=== PATIENT | male | born 1965 | race Caucasian/White ===

== ENCOUNTER 2018-02-18 10:56 | Outpatient (CLI) | payer BC, SELFPAY ==
[2018-02-18 12:08] LABS: Cholesterol 160 mg/dL (50-200); HDL Cholesterol 44 mg/dL (40-60); LDL CHOLESTEROL 87 mg/dL (<100); Triglyceride 267 mg/dL (30-150)
== END 2018-02-18 11:16 ==
PROVIDERS: PCP Nurse Practitioner; Visit Provider Nurse Practitioner
DX: E78.5 Hyperlipidemia, unspecified (principal)
CPT/HCPCS: 36415; 80061; 83721

== ENCOUNTER 2018-07-14 06:27 | Emergency (ER) | payer BC, SELFPAY ==
[2018-07-14 06:31] VITALS: BP 144/101; PULSE 76; RESP 24; TEMP 36.9; O2SAT 97
--- NOTE | 2018-07-14 07:21 | DI.RAD_ITS ---
SYMPTOM/DIAGNOSIS: SOB FRONTAL AND LATERAL CHEST: Comparison is made with 03/26/17. Cardiac silhouette is within normal limits and stable. Pulmonary vasculature is within normal limits. There is an infiltrate seen in the right lower lobe. The left lung appears clear. No gross effusions or pneumothoraces are identified. There are mild degenerative changes seen in the spine. IMPRESSION: Right basilar infiltrate suspicious for pneumonia. Progress films are recommended in this patient to document complete resolution of the right basilar infiltrate.
--- NOTE | 2018-07-14 07:23 | W.ED.GENAD ---
Discharge Plan Disposition Patient Disposition: HOME Discharge Details Chief Complaint: RespSymp Clinical Impression: Consolidation of right lower lobe of lung, Ground glass opacity present on imaging of lung, Liver lesion, right lobe, Thickening of mucosa Primary Care Provider: Liliam Marrero ED Provider: Azael Duff Home Meds and New Rx's Prescriptions: New levofloxacin [Levaquin] 750 mg tablet 750 mg PO DAILY Qty: 4 RF: 0 Continued atorvastatin [Lipitor] 40 MG tablet 40 mg PO DAILY Qty: 90 RF: 3 amlodipine 5 MG tablet 5 mg PO DAILY Qty: 90 RF: 3 benzonatate [Tessalon Perles] 100 mg capsule 100 mg PO TID PRNRF: 0 Discharge Instructions Instructions: Pneumonia (ED) Additional Instructions: Please take antibiotic as prescribed. Please contact your primary care physician to arrange follow-up. Call on Monday. Please follow-up with pulmonology. Return to the ER for any worsening or new concerning symptoms. Stand Alone Forms: Work Release Referrals: Beatriz Barrera MD [ [facility] STAFF PHYSICIAN] - Liliam Marrero NP [Primary Care Provider] - Discharge Data Discharge Date/Time-TO BE ENTERED AT DEPARTURE: 07/14/18 12:05 Medical Decision Making <Chase Silva MD - Last Filed: 07/16/18 15:57> Patient does appear somewhat tachypneic but not in distress. He does have saturations that vary from 85-95%. He has diminished breath sounds on the right with some rhonchi unclear whether that is related to his paralyzed right hemidiaphragm or not. He is not febrile. He does not appear to be in distress. He is not complaining of chest pain. We will go ahead and place an IV and get laboratory studies including a d-dimer. Will obtain chest x-ray and EKG. Patient's EKG is sinus rhythm at 72. He has an incomplete right bundle branch block. Otherwise unremarkable EKG. laboratory studies show normal CBC. D-dimer is negative. Troponin is negative. Chemistries unremarkable. Magnesium a little low at 1.7. BMP normal. Chest x-ray with questionable right lower lobe process. Case discussed with Dr. Duff for signout. Will obtain CT scan of neck, chest, abdomen pelvis. Disposition pending results of the scans. Lab Data Lab results reviewed: Yes I reviewed the patient's lab results. ECG Data Attestation: I personally reviewed and interpreted this ECG (s) as follows: Interpretation: Sinus rhythm at 76 with an incomplete right bundle branch. <Azael Duff MD - Last Filed: 07/15/18 21:33> 8:45 -- Care signed out by Dr. Silva with plan to obtain CT imaging of neck, chest and abdomen pelvis. 10:28: CT of the neck interpreted by radiology: Pharyngeal mucosal thickening with decreased caliber of pharyngeal airway of indeterminate etiology. Bilateral apical pulmonary opacities. Differential diagnosis includes infection, hypersensitivity pneumonitis, pulmonary edema and other nonspecific interstitial pneumonitis. CT of the chest interpreted by radiology: No pulmonary artery embolism, right lower lobe consolidation consistent with pneumonia in the proper clinical setting. Bilateral groundglass lung opacities, nonspecific. Differential diagnosis includes infection, hypersensitivity pneumonitis and other interstitial lung disease, nonspecific. CT abdomen and pelvis interpreted by radiology: No acute abnormality. Mild diverticulosis of the descending and sigmoid colon noted. 11:45 -- Requested additional interpretation from radiology reviewed: The appendix is normal. All results were discussed with the patient. Patient was reassessed and remained stable. Saturating well on room air. No respiratory distress. Plan to start Levaquin 750 mg x 5 days given history of diaphragmatic paralysis and recent administration of magnesium. Disposition decision was made weighing the risks and benefits of hospitalization versus outpatient treatment, the risk for further decompensation, and the patient's wishes. The patient was stable and requested discharge. Prior to discharge, my usual and customary return precautions were reviewed with the patient - this included follow-up instructions and reason to return to the emergency department if condition worsens, does not improve as expected, or other new concerns arise. HPI <Chase Silva MD - Last Filed: 07/16/18 15:57> General Mode of arrival: ambulatory. Date/Time Provider Initiated Documentation: 07/14/18 07:21. Limitations to Documentation: no limitations. Information obtained by: patient and family. HPI Narrative: Patient presents to ED with complaints of increased throat constriction and shortness of breath. Patient apparently has a history of paralyzed right hemidiaphragm as well as chronic, intermittent throat constriction. He has been seen in [place] and at [facility]. He was actually at [facility] yesterday for discussion with surgeon regarding the right hemidiaphragm paralysis. He has not had any new symptoms until this morning. He went to bed using his CPAP machine. He awoke with increased shortness of breath, some sort of discomfort in the right chest that he cannot really describe. Increased feeling of throat constriction. He also complains of numbness in the scalp region but not a headache. He has had no fever that he is aware of. He is not coughing more than he usually does in relation to the throat constriction which makes him feel like he needs to clear his throat. He did have some right lower quadrant abdominal pain and the need to have a bowel movement this morning. He subsequently had a large diarrheal stool. Abdominal pain seemed to get better but is still kind of there. Presents now for evaluation. Related Data Home Medications Medication Instructions Recorded Confirmed amlodipine 5 mg PO DAILY #90 tab-cap 07/11/17 02/20/18 atorvastatin [Lipitor] 40 mg PO DAILY #90 tab-cap 07/11/17 02/20/18 benzonatate 100 mg capsule 100 mg PO TID PRN 06/07/18 levofloxacin [Levaquin] 750 mg PO DAILY #4 tab 07/14/18 Previous Rx's Medication Instructions Recorded amlodipine 5 mg PO DAILY #90 tab-cap 07/11/17 atorvastatin [Lipitor] 40 mg PO DAILY #90 tab-cap 07/11/17 levofloxacin [Levaquin] 750 mg PO DAILY #4 tab 07/14/18 Allergies Allergy/AdvReac Type Severity Reaction Status Date / Time No Known Drug Allergies Allergy Unverified 07/14/18 06:38 General Stated Complaint: RespSymp GOLDIE: 3 Review of Systems <Chase Silva MD - Last Filed: 07/16/18 15:57> Constitutional Denies chills, Denies fever(s), Denies headache(s), Denies lethargy, Denies malaise and Denies weakness Eyes Denies eye discharge and Denies eye pain ENT Denies vertigo, Denies facial pain, Denies headache(s), Denies nasal congestion, Denies neck pain, Denies sore throat and Reports other (throat constriction) Cardiovascular Denies chest pain, Denies syncope, Denies edema, Reports lightheadedness and Reports dyspnea Respiratory Denies chest congestion, Reports cough and Reports dyspnea Gastrointestinal Reports abdominal pain, Reports diarrhea, Denies nausea and Denies vomiting Genitourinary Denies hematuria, Denies dysuria and Denies flank pain Musculoskeletal Denies back pain, Denies neck pain and Reports numbness (scalp) Integumentary/Breasts Denies rash Neurologic Denies confusion, Denies vertigo, Denies syncope, Denies headache(s), Reports numbness (scalp) and Denies weakness Psychiatric Denies confusion PFS <Chase Silva MD - Last Filed: 07/16/18 15:57> Medical History Paralysis of diaphragm (Chronic) Paralysis agitans (Resolved) Rotator cuff syndrome of left shoulder (Chronic) Restrictive lung disease (Chronic 10/11/17) Obstructive sleep apnea (Chronic) Neuralgia and neuritis (Resolved) Traumatic tear of supraspinatus tendon of left shoulder (Resolved 12/16/14) Lateral epicondylitis of left elbow (Resolved 04/14/16) Impingement syndrome, shoulder, left (Resolved) Hyperlipidemia (Chronic 12/16/14) Essential hypertension (Chronic 04/27/15) Esophageal reflux (Chronic) Bony spur (Chronic 08/27/14) Bicipital tenosynovitis Esophageal reflux (05/29/09) Family hx colonic polyps Frostbite of face Hiatal hernia (05/29/12) History of esophageal stricture Hypertriglyceridemia Lipoma of skin Paresthesia Temporomandibular joint (TMJ) pain Surgical History Rotator Cuff Repair (01/19/15) upper GI endoscopy (05/11/05) Family History Sister Personal history of malignant neoplasm Thyroid disease Grandfather Heart disease Grandmother Diabetes Thyroid disease Mother Essential hypertension Colon polyps Hyperlipidemia Glaucoma Father Essential hypertension Colon polyps Maternal Aunt Multiple sclerosis Brother Personal history of malignant neoplasm Other Family history of colonic polyps Family history of malignant neoplasm of gastrointestinal tract Social History Smoking and Tabacco status: Never Exam <Chase Silva MD - Last Filed: 07/16/18 15:57> Const General: cooperative and comfortable Orientation: alert and oriented x3 HENMT Head: normocephalic and atraumatic Mouth: oropharynx normal and moist mucous membranes Throat: posterior oropharynx normal and no uvular edema Neck Neck: trachea midline, supple and no anterior neck swelling Resp Effort & Inspection: tachypneic Auscultation: diminished lung sounds on the right in the lower lung rizzo and rhonchi right lower Cardio Rate: regular rate Rhythm: regular rhythm Heart Sounds: S1 normal and S2 normal GI Inspection: non-distended Palpation: soft, no guarding and nontender Skin General skin exam: no rashes or lesions noted Neuro General: alert, oriented x3, no focal motor deficits and CN's II-XI intact bilaterally Cognition: normal cognition Speech: speech normal Extrem General: no clubbing, cyanosis or edema and no calf tenderness Course <Chase Silva MD - Last Filed: 07/16/18 15:57> Vital Signs Temperature 98.4 F 07/14/18 06:31 Pulse 76 07/14/18 06:31 Respiratory Rate 24 07/14/18 06:31 Blood Pressure 144/101 H 07/14/18 06:31 Pulse Oximetry 97 07/14/18 06:31 Temperature 98.4 F 07/14/18 06:31 Temperature Source Temporal Artery Scan 07/14/18 06:31 Pulse 76 07/14/18 06:31 Respiratory Rate 24 07/14/18 06:31 Respiratory Effort 07/14/18 06:39 Respiratory Depth Shallow 07/14/18 06:39 Blood Pressure 144/101 H 07/14/18 06:31 Pulse Oximetry 97 07/14/18 06:31 Oxygen Delivery Method Room Air 07/14/18 06:31 Oxygen Flow Rate 0 07/14/18 06:31 Pain Level 0 07/14/18 06:31 Sign Out <Chase Silva MD - Last Filed: 07/16/18 15:57> Sign Out Data: Sign Out Comment: pending imaging studies Last updated by Chase Silva MD at 07/14/18 08:51 Post-Handoff Eval:
[2018-07-14 07:36] LABS: Abs Immature Grans 0.03 k/cumm (0.0-0.09); Absolute Basophil Count 0.02 k/cumm (0.0-0.2); Absolute Eosinophil Count 0.13 k/cumm (0.0-0.7); Absolute Lymphocyte Count 1.88 k/cumm (1.2-3.4); Absolute Monocyte Count 0.59 k/cumm (0.11-0.7); Absolute Neutrophil Count 4.24 k/cumm (1.2-6.7); Basophils % 0.3; Eosinophils % 1.9; HCT 45.6 % (40.0-50.0); HGB 15.5 g/dL (13.5-17.5); Immature Grans % 0.4; Lymphocytes % 27.3; Mean Corpuscular Hemoglobin 30.5 pg (27.0-33.0); Mean Corpuscular Volume 89.6 fL (80-95); Monocytes % 8.6; Neutrophils % 61.5; Platelet Count 219 x1000/uL (130-400); RBC 5.09 m/cumm (4.50-6.00); RBC Distribution Width 11.9 % (11.8-14.1); White Blood Cell Count 6.89 k/cumm (4.4-10.8)
[2018-07-14 07:55] LABS: ALT 47 U/L (12-78); AST 21 U/L (15-37); Albumin 3.8 g/dL (3.4-5.0); Alkaline Phosphatase 100 U/L (46-116); Anion Gap 10.8 mmol/L (3-11); BUN 15 mg/dL (7-18); Bilirubin, Total 0.6 mg/dL (0.2-1.0); CO2 27.2 mmol/L (21.0-32.0); CREATININE 1.24 mg/dL (0.70-1.30); Calcium 9.1 mg/dL (8.5-10.1); Chloride 104 mmol/L (98-107); Glucose 109 mg/dL (70-100); Magnesium 1.7 mg/dL (1.8-2.4); NT-proBNP 11 pg/mL; Potassium 3.8 mmol/L (3.5-5.1); Sodium 142 mmol/L (136-145); Total Protein 7.8 g/dL (6.4-8.2)
[2018-07-14 07:56] LABS: Troponin I < 0.02 ng/mL (0.00-0.06)
[2018-07-14 08:05] LABS: D-Dimer 239 ng/mlFEU (<500)
--- NOTE | 2018-07-14 08:27 | DI.VRAD_ITS ---
EXAM: XR Chest, 2 Views EXAM DATE/TIME: 07/14/2018 7:23 AM CLINICAL HISTORY: 52 years old, male; Signs and symptoms; Other: SOB TECHNIQUE: XR of the chest, 2 views. COMPARISON: CR CHEST 2 VIEWS PA,LAT 03/26/2017 11:26 AM FINDINGS: Lungs: Right basilar opacification with obscuration of the right diaphragm and air bronchograms consistent with right pleural lobe consolidation. The findings are consistent with pneumonia in the proper clinical setting. Follow-up imaging until resolution of this abnormality is recommended as clinically warranted. The left lung is clear. Pleural space: Unremarkable. No pleural effusion. No pneumothorax. Heart/Mediastinum: The cardiomediastinal silhouette and pulmonary vasculature are within normal limits. Bones/joints: Unremarkable. IMPRESSION: Right lower lobe consolidation consistent with pneumonia in the proper clinical setting. Follow-up imaging until resolution of this abnormality is recommended as clinically warranted. Dictated and Authenticated by: Enrique Henry MD. Ordering:TRACI Stone MD
[2018-07-14] MEDS: Magnesium Oxide 400 MG TAB 800 MG PO (09:09)
[2018-07-14 09:17] LABS: TSH (W/Ref FT4) 1.85 uIU/mL (0.358-3.74)
[2018-07-14] MEDS: Omnipaque 350 MG/ML 100 ML BTL IJ (09:37)
--- NOTE | 2018-07-14 09:45 | DI.CT_ITS ---
SYMPTOM/DIAGNOSIS: INTERMITTENT HYPOXIA, SOB, ? PNEUMONIA, RLQ PAIN ABDOMEN AND PELVIC CT: There are no priors for comparison. The liver is normal in size. There are two tiny hypodensities in the liver. They are too small for further characterization but likely reflect small cysts. No suspicious hepatic masses are seen. The portal, superior mesenteric and splenic veins are patent. The gallbladder is negative. There is no biliary ductal dilatation. The pancreas and spleen are unremarkable. Incidental note is made of an accessory spleen in the hilum. The adrenal glands are unremarkable. The kidneys show normal and symmetric enhancement. No suspicious solid renal masses are present. No hydronephrosis is identified. The urinary bladder is intact. The reproductive organs are unremarkable. The bowel shows no evidence of obstruction or inflammation. There do appear to be a few diverticula in the sigmoid colon and descending colon but no acute diverticulitis is present. There is a normal appendix visualized. The abdominal aorta is of normal caliber with mild atherosclerosis. No significant abdominal or pelvic adenopathy, ascites or pneumoperitoneum is seen. No acute osseous abnormality is identified. IMPRESSION: No evidence of an acute abdomen. CHEST CTA: CT angiography was performed with multi slice acquisition and multi planar and 3D reconstruction. CT scan of the chest was performed according to the pulmonary embolus protocol. There is no evidence of a pulmonary embolus. The thoracic aorta is of normal caliber. No aneurysmal dilatation or dissection is seen. Heart size is within normal limits. No significant pericardial effusion is seen. No evidence of right ventricular dysfunction is present. No significant thoracic adenopathy is seen. There are infiltrates seen in the lower lobes bilaterally and the right upper lobe. No significant pleural effusion or pneumothorax is identified. No acute osseous abnormality is seen in the thoracic spine. IMPRESSION: 1. No evidence of a pulmonary embolus, thoracic aortic dissection or aneurysm. 2. Bilateral pulmonary infiltrates. These may represent atelectasis, pneumonia or edema.
--- NOTE | 2018-07-14 10:00 | DI.CT_ITS ---
SYMPTOM/DIAGNOSIS: CHRONIC DIFFICULTY SWALLOWING, PARALYZED DIAPHRAGM NECK CT: CT scan of the neck was performed following the uneventful administration of intravenous contrast material. The visualized intracranial structures are unremarkable. The orbits and retro-orbital soft tissues have a normal appearance. The visualized paranasal sinuses are clear. The mastoid air cells are well pneumatized. There is mild diffuse thickening of the pharyngeal soft tissues. No focal fluid collection is seen to suggest an abscess. No definite tonsillar enlargement is appreciated. The remainder of the oropharynx,nasopharynx, hypopharynx and larynx are unremarkable. The parotid and submandibular glands have a normal appearance. No significant cervical adenopathy is appreciated. There is a solitary hypodense lesion in the left thyroid gland. This may be further evaluated with thyroid ultrasound. Small nonspecific patchy opacities are seen in the lung apices. The cervical spine shows no acute abnormality. IMPRESSION: Mild pharyngeal mucosal thickening with decreased caliber of the pharyngeal airway. This is indeterminate. No focal fluid collection is seen to suggest an abscess. Bilateral apical pulmonary opacities. These are nonspecific. Differential considerations include infection, edema, interstitial pneumonitis or hypersensitivity pneumonitis among other etiologies.
--- NOTE | 2018-07-14 10:04 | DI.VRAD_ITS ---
EXAM: CT Neck With Contrast EXAM DATE/TIME: 07/14/2018 9:36 AM CLINICAL HISTORY: 52 years old, male; Signs and symptoms; Dysphagia / difficulty swallowing; Patient HX: Chronic difficulty swallowing, paralyzed diaphragm TECHNIQUE: Axial computed tomography images of the neck with intravenous contrast. All CT scans at this facility use at least one of these dose optimization techniques: automated exposure control; mA and/or kV adjustment per patient size (includes targeted exams where dose is matched to clinical indication); or iterative reconstruction. Coronal and sagittal reformatted images were created and reviewed. CONTRAST: 40 ml of omnipaque 350 administered intravenously. COMPARISON: No relevant prior studies available. FINDINGS: Oropharynx: Mild pharyngeal mucosal thickening. Decreased caliber of the pharynx. No significant tonsillar enlargement. Larynx: Normal. Normal epiglottis. Submandibular/Parotid glands: Normal. Glands are normal in size. Thyroid: Normal. No enlarged or calcified nodules. Lymph nodes: Normal. No lymphadenopathy. Trachea: The subglottic airway and trachea is unremarkable. Lungs: Multifocal groundglass opacities within the right lung apex. Small patchy consolidation within the medial left lung apex. Vasculature: No acute findings. Bones/joints: Normal. No acute fracture. Soft tissues: No neck mass or abscess identified. IMPRESSION: 1. Pharyngeal mucosal thickening with decreased caliber of the pharyngeal airway of indeterminate etiology. 2. Bilateral apical pulmonary opacities. Differential diagnosis includes infection, hypersensitivity pneumonitis, pulmonary edema and other nonspecific interstitial pneumonitis. Dictated and Authenticated by: Enrique Henry MD. Ordering:SHILO Addison MD
--- NOTE | 2018-07-14 10:14 | DI.VRAD_ITS ---
Addendum created by Enrique Henry MD on 07/14/2018 10:59:41 AM EST ADDENDUM: The appendix is normal. The report and impression are otherwise unchanged. Initial report created on 07/14/2018 10:13:38 AM EST EXAM: CT Angiography Chest With Contrast EXAM DATE/TIME: 07/14/2018 8:37 AM CLINICAL HISTORY: 52 years old, male; Signs and symptoms; Shortness of breath; Patient HX: Intermittent hypoxia, SOB, ? pna on cxr, rlq pain. TECHNIQUE: Axial computed tomographic angiography images of the chest with intravenous contrast using CT angiography protocol. All CT scans at this facility use at least one of these dose optimization techniques: automated exposure control; mA and/or kV adjustment per patient size (includes targeted exams where dose is matched to clinical indication); or iterative reconstruction. Coronal and sagittal reformatted images were created and reviewed. 3D reconstructed images were created and reviewed. CONTRAST: 83 ml of Omnipaque 350 administered intravenously. COMPARISON: CR XR CHEST 2V PA LATERAL 07/14/2018 8:01 AM FINDINGS: Pulmonary arteries: Normal. No pulmonary emboli. Aorta: Normal. No aortic aneurysm. No aortic dissection. Lungs: Right lower lobe consolidation consistent with pneumonia in the proper clinical setting. Left lower lobe and right upper lobe groundglass opacities. Pleural space: Normal. No pneumothorax. No pleural effusion. Heart: Normal. No cardiomegaly. No pericardial effusion. Upper abdomen: Chronic elevation of the right diaphragm. Lymph nodes: Unremarkable. No enlarged lymph nodes. Bones/joints: Unremarkable. No acute fracture. Soft tissues: Unremarkable. IMPRESSION: 1. No pulmonary arterial embolism. 2. Right lower lobe consolidation consistent with pneumonia in the proper clinical setting. 3. Bilateral groundglass lung opacities, nonspecific. Differential diagnosis includes infection, hypersensitivity pneumonitis and other interstitial lung disease, nonspecific. EXAM: CT Angiography Abdomen With Contrast EXAM DATE/TIME: 07/14/2018 8:37 AM CLINICAL HISTORY: 52 years old, male; Signs and symptoms; Shortness of breath; Patient HX: Intermittent hypoxia, SOB, ? pna on cxr, rlq pain. TECHNIQUE: Axial computed tomographic angiography images of the abdomen with intravenous contrast material, including non-contrast images if performed. MIP and/or 3D reconstructed images were created and reviewed. All CT scans at this facility use at least one of these dose optimization techniques: automated exposure control; mA and/or kV adjustment per patient size (includes targeted exams where dose is matched to clinical indication); or iterative reconstruction. Coronal and sagittal reformatted images were created and reviewed. COMPARISON: CR XR CHEST 2V PA LATERAL 07/14/2018 8:01 AM FINDINGS: Lungs: Unremarkable. No consolidation. VASCULATURE: Aorta: No aortic aneurysm. No aortic dissection. Celiac trunk and mesenteric arteries: No occlusion or significant stenosis. Renal arteries: No occlusion or significant stenosis. ABDOMEN: Liver: Tiny indeterminate low-density lesion within the right hepatic lobe on image 32 of series 12 is nonspecific but likely tiny cyst. No hepatic duct dilatation. Gallbladder and bile ducts: Unremarkable. No cholecystitis or bile. Pancreas: Normal. No ductal dilation. Spleen: Normal. No splenomegaly. Adrenals: Normal. No mass. Kidneys and ureters: Normal. No hydronephrosis. Stomach and bowel: Mild diverticulosis of the descending and sigmoid colon. No diverticulitis. Intraperitoneal space: Unremarkable. No free air. No significant fluid collection. Bones/joints: Unremarkable. No acute fracture. No dislocation. Soft tissues: Unremarkable. Lymph nodes: Unremarkable. No enlarged lymph nodes. IMPRESSION: No acute abnormality. Dictated and Authenticated by: Enrique Henry MD. Ordering:SHILO Addison MD
[2018-07-14] MEDS: LEVOFLOXACIN 500 MG, LEVOFLOXACIN 250 MG 750 MG PO (11:32)
--- NOTE | 2018-07-16 09:22 | PDOC.ERCMPRO ---
Care Management Progress Note 07/16-Dr. Ana Duff requested a referral to Pulmonology ([facility]) as soon as they can get him. This CM faxed referral to [facility] (Elida is PCP) requesting that [facility] send referral.
== END 2018-07-14 12:05 | disposition home or self-care (01) ==
PROVIDERS: Emergency Medicine; Emergency Provider Student in an Organized Health Care Education/Training Program; PCP Nurse Practitioner
DX: R91.8 Other nonspecific abnormal finding of lung field (principal); R93.2 Abnormal findings on diagnostic imaging of liver and biliary tract; R93.89 Abnormal findings on diagnostic imaging of other specified body structures; R09.89 Other specified symptoms and signs involving the circulatory and respiratory systems; J98.6 Disorders of diaphragm; I10 Essential (primary) hypertension
CPT/HCPCS: 36415; 70491; 71275; 74177; 80053; 93005; 99285; 71046; 83735; 83880; 84443; 84484; 85025; 85379; 93010; J3490

== ENCOUNTER 2019-01-19 11:37 | Emergency (ER) | payer BC, SELFPAY ==
[2019-01-19 11:41] VITALS: BP 134/100; PULSE 59; RESP 18; TEMP 36.7; O2SAT 99
--- NOTE | 2019-01-19 12:03 | DI.CT_ITS ---
SYMPTOM/DIAGNOSIS: SENSATION OF FB IN THROAT, CXR NEG CT NECK: A noncontrast exam was performed. There is a question of an area of soft tissue asymmetry in the left vallecula which could be artifactual although a mass could not be excluded. The epiglottis appears normal. There is no significant airway narrowing. The adenoids and tonsils as well as prominence of mandibular glands are unremarkable. The orbits and sinuses are unremarkable. IMPRESSION: Soft tissue asymmetry of the left vallecula. A mass could not be excluded. NONCONTRAST CHEST CT: The heart size is normal. There is minimal vascular calcification. No pleural or pericardial effusions or infiltrates are seen. There is artifact at the level of the upper abdomen. The lungs are clear. There is no evidence of adenopathy or infiltrate. There is minimal atelectasis at the right lung base. The tracheobronchial tree is unremarkable. IMPRESSION: Minimal right lower lobe atelectasis.
--- NOTE | 2019-01-19 12:07 | ED.GENADUL_ITS ---
Discharge Plan Disposition Patient Disposition: HOME Discharge Details Chief Complaint: ThroatFB Clinical Impression: Lesion of throat, Enlarged lymph node in neck Primary Care Provider: Darren Velasco ED Provider: Azael Duff Home Meds and New Rx's Prescriptions: New methylprednisolone [Medrol (Robe)] 4 mg tablets,dose pack See Rx Instructions .ROUTE .COMPLEX Qty: 21 RF: 0 amoxicillin-pot clavulanate [Augmentin] 875-125 mg tablet 1 tab PO BID Qty: 20 RF: 0 Continued atorvastatin [Lipitor] 40 mg tablet 40 mg PO DAILY Qty: 90 RF: 3 Discharge Instructions Additional Instructions: Please follow-up with [facility]NT as soon as possible. A referral was made today. Please call to confirm appointment . Please contact your primary care physician to arrange follow-up. Return to the ER for any worsening or new concerning symptoms. Referrals: Darren Velasco [Primary Care Provider] - Medical Decision Making 12:38 -- 53-year-old male with history of paralyzed right hemidiaphragm here with sensation of foreign body in his throat intermittent since last night after eating chicken. No drooling or respiratory distress. Unclear if symptoms are related to impacted esophageal foreign body versus related to his paralyzed and elevated right hemidiaphragm. I obtained outside hospital records including [place] [facility] [place] chest x-ray which was interpreted by radiology as negative. Plan to obtain CT imaging of the chest. --CT chest interpreted by radiology: No acute findings. CT of the neck interpreted by radiology: IMPRESSION: 1. Slight fullness in the region of the left vallecula. Direct inspection may be health rule out developing lesion in this area. 2. Asymmetric 8mm diameter left cervical lymph node at the level of the left vallecula, axial series 3, image 228. Differential left-sided head and neck cancer is found on direct inspection, a PET scan may be helpful for evaluation of this lymph node. No ENT available here at [facility]. I called and spoke with [place] Woodard [place] [facility] [place], I sent CT imaging for review, I discussed ED presentation and course - he recommended treating with Medrol Dosepak and prophylactically with Augmentin, outpatient follow-up and will see the patient in clinic this week. All results were discussed with the patient. Discharge plan was discussed with the patient. Patient understands importance of timely outpatient follow-up. Usual and customary discharge instructions were provided. HPI General Mode of arrival: ambulatory . Date/Time Provider Initiated Documentation: 01/19/19 12:03 . Limitations to Documentation: no limitations . Information obtained by: patient . HPI Narrative: 53-year-old male with history of paralyzed right hemidiaphragm, here with chief complaint of sensation of foreign body in his throat. Patient notes symptoms started last night after eating a meal of chicken rapidly. Symptoms started about 10 to 15 minutes after the meal. Symptoms were severe prompting him to go to the emergency department at [facility]. He was given some Valium and symptoms seem to improve. He had a chest x-ray that was negative. He was discharged home with plan to follow-up as needed outpatient. He slept well last night and woke up this morning and had recurrent symptoms. Patient states feels like there is something in his throat. Symptoms are moderate rated 5 out of 10. No modifiers. He did attempt to eat a banana today and drink a bunch of fluid. He initially tolerated this and subsequently was spitting up some water. He has no associated shortness of breath or chest pain. No abdominal pain. Related Data Home Medications Medication Instructions Recorded Confirmed atorvastatin 40 mg tablet 40 mg PO DAILY #90 tab-cap 09/06/18 01/19/19 amoxicillin-pot clavulanate 1 tab PO BID #20 tab 01/19/19 [Augmentin] methylprednisolone [Medrol (Robe)] See Rx Instructions .ROUTE 01/19/19 .COMPLEX #21 dose pk Previous Rx's Medication Instructions Recorded atorvastatin 40 mg tablet 40 mg PO DAILY #90 tab-cap 09/06/18 amoxicillin-pot clavulanate 1 tab PO BID #20 tab 01/19/19 [Augmentin] methylprednisolone [Medrol (Robe)] See Rx Instructions .ROUTE 01/19/19 .COMPLEX #21 dose pk Allergies Allergy/AdvReac Type Severity Reaction Status Date / Time No Known Drug Allergies Allergy Unverified 01/19/19 11:49 General Stated Complaint: ThroatFB GOLDIE: 3 Review of Systems Constitutional Denies fever(s) ENT Reports as per HPI Cardiovascular Denies chest pain and Denies dyspnea Respiratory Denies dyspnea Gastrointestinal Denies abdominal pain [facility] Medical History Bicipital tenosynovitis Bony spur (Chronic 08/27/14) Esophageal reflux (05/29/09) Esophageal reflux (Chronic) Essential hypertension (Chronic 04/27/15) Family hx colonic polyps Frostbite of face Hiatal hernia (05/29/12) History of esophageal stricture Hyperlipidemia (Chronic 12/16/14) Hypertriglyceridemia Impingement syndrome, shoulder, left (Resolved) Lateral epicondylitis of left elbow (Resolved 04/14/16) Lipoma of skin Neuralgia and neuritis (Resolved) Obstructive sleep apnea (Chronic) Paralysis agitans (Resolved) Paralysis of diaphragm (Chronic) Paresthesia Restrictive lung disease (Chronic 10/11/17) Rotator cuff syndrome of left shoulder (Chronic) Temporomandibular joint (TMJ) pain Traumatic tear of supraspinatus tendon of left shoulder (Resolved 12/16/14) Surgical History Rotator Cuff Repair (01/19/15) upper GI endoscopy (05/11/05) Family History Sister Thyroid disease Colon cancer Paternal Grandfather Heart disease Alcohol abuse Depression Paternal Grandmother Diabetes Thyroid disease Breast cancer Mother Essential hypertension Colon polyps Hyperlipidemia Glaucoma Father Essential hypertension Colon polyps Diabetes Maternal Aunt Multiple sclerosis Brother Colon cancer Other Family history of colonic polyps Family history of malignant neoplasm of gastrointestinal tract Social History Smoking/Tobacco Use Status: Never Second Hand Exposure: Yes Alcohol Intake: former Drug use: Never Substance use type: does not use Caregiver/Support person: No Household members: significant other Housing: house Communication Needs: None Do you need help understanding health information?: Rarely Pets and animals: Yes Pets and animals: cat(s), dog(s) and bird(s) Sexually active: Yes Do you think of yourself as: straight/heterosexual Current gender identity: male What is your relationship status?: living with partner How often do you talk on the phone with friends or family?: three or more times per week How often do you get together with friends or relatives?: once per week How often do you attend alevism or presybeterian services?: decline to answer Do you belong to any clubs or organized social groups?: yes Panel score (0-1 are the most socially isolated patients): 3 What type of physical activity do you participate in: bicycling Duration: decline to answer Frequency: 1-2 times per week Christina/Christianity: Yazdanism Special christina needs: No Seatbelt use: always Helmet use: Yes Helmet use: always Drive intox or ride w/intox tour bus driver: No Do you feel safe at home: Yes Do you feel safe in your relationship?: Yes Exam Const General: cooperative and no acute distress HENMT Head: normocephalic Mouth: moist mucous membranes Throat: posterior oropharynx normal Other: no drooling Eyes Conjunctivae: normal conjunctivae Sclera: normal sclerae Neck Neck: normal visual inspection, trachea midline, supple and nontender Resp Auscultation: clear to auscultation bilaterally, diminished lung sounds on the right in the lower lung rizzo, no rales, no rhonchi and no wheezes Cardio Jugular venous pressure: no JVD Rate: regular rate and not tachycardic Rhythm: regular rhythm GI Palpation: soft, not firm, no guarding, no masses, not rigid and nontender Neuro General: alert, awake and tone normal Extrem General: no edema Psych Appearance: grossly normal Mental Status: mental status grossly normal Course Vital Signs Temperature 36.7 C 01/19/19 11:41 Pulse 59 L 01/19/19 11:41 Respiratory Rate 18 01/19/19 11:41 Blood Pressure 134/100 H 01/19/19 11:41 Pulse Oximetry 99 01/19/19 11:41 Temperature 36.7 C 01/19/19 11:41 Temperature Source Temporal Artery Scan 01/19/19 11:41 Pulse 59 L 01/19/19 11:41 Respiratory Rate 18 01/19/19 11:41 Respiratory Effort Non-Labored 01/19/19 11:52 Respiratory Pattern Normal 01/19/19 11:52 Blood Pressure 134/100 H 01/19/19 11:41 Blood Pressure Position Sitting 01/19/19 11:41 Pulse Oximetry 99 01/19/19 11:41 Oxygen Delivery Method Room Air 01/19/19 11:41 Oxygen Flow Rate 0 01/19/19 11:41 Pain Level 5 01/19/19 11:41
--- NOTE | 2019-01-19 13:01 | DI.VRAD_ITS ---
EXAM: CT Neck Without Contrast EXAM DATE/TIME: 01/19/2019 12:07 PM CLINICAL HISTORY: 53 years old, male; Other: Sensation of fb in throat, cxr neg. TECHNIQUE: Imaging protocol: Computed tomography images of the neck without contrast. Radiation optimization: All CT scans at this facility use at least one of these dose optimization techniques: automated exposure control; mA and/or kV adjustment per patient size (includes targeted exams where dose is matched to clinical indication); or iterative reconstruction. COMPARISON: CT neck w 07/14/2018 9:41 AM FINDINGS: Nasopharynx: Normal. Oropharynx: Normal. No significant tonsillar enlargement. Hypopharynx: Normal. Larynx: Slight fullness in the region of the left vallecula. Direct inspection may be health rule out developing lesion in this area. Retropharyngeal space: Normal. Submandibular/Parotid glands: Normal. Glands are normal in size. Thyroid: Small 10 mm left thyroid nodule with no followup needed. Lymph nodes: Asymmetric 8mm diameter left cervical lymph node at the level of the left vallecula, axial series 3, image 228. Differential left-sided head and neck cancer is found on direct inspection, a PET scan may be helpful for evaluation of this lymph node. Trachea: Visualized trachea is unremarkable. Lungs: Normal as visualized. Dental: Examination is limited secondary to metallic artifact from dental fillings and/or dental hardware. Bones/joints: Normal. No acute fracture. Soft tissues: See Larynx Finding. IMPRESSION: 1. Slight fullness in the region of the left vallecula. Direct inspection may be health rule out developing lesion in this area. 2. Asymmetric 8mm diameter left cervical lymph node at the level of the left vallecula, axial series 3, image 228. Differential left-sided head and neck cancer is found on direct inspection, a PET scan may be helpful for evaluation of this lymph node. EXAM: CT Chest Without Contrast EXAM DATE/TIME: 01/19/2019 12:07 PM CLINICAL HISTORY: 53 years old, male; Other: Sensation of fb in throat, cxr neg. TECHNIQUE: Imaging protocol: Computed tomography images of the chest without contrast. Radiation optimization: All CT scans at this facility use at least one of these dose optimization techniques: automated exposure control; mA and/or kV adjustment per patient size (includes targeted exams where dose is matched to clinical indication); or iterative reconstruction. COMPARISON: CT neck w 07/14/2018 9:41 AM FINDINGS: Lungs: Mild right basilar atelectasis and/or infiltrate and/or scarring. Pleural space: Unremarkable. No pneumothorax. No pleural effusion. Heart: Unremarkable. No cardiomegaly. No pericardial effusion. Aorta: Unremarkable. No aortic aneurysm. Great vessels off aortic arch: Calcification of the thoracic aorta and/or great vessels consistent with atherosclerotic vessel disease. Other arteries: There is direct origin of the left vertebral artery from the aortic arch which is a normal variant seen in 1% of the population. Lymph nodes: Unremarkable. No enlarged lymph nodes. Bones/joints: Unremarkable. No acute fracture. Soft tissues: Unremarkable. IMPRESSION: No acute findings. Dictated and Authenticated by: Iván Alvarez MD. Ordering:SHILO Addison MD
[2019-01-19 13:41] VITALS: BP 132/93; PULSE 58; RESP 14; TEMP 37.2; O2SAT 100
[2019-01-19] MEDS: predniSONE 20 MG TAB 40 MG PO (14:07)
[2019-01-19] MEDS: Amoxicillin 875/Clav. 125 TAB PO (14:07)
== END 2019-01-19 14:13 | disposition home or self-care (01) ==
PROVIDERS: Emergency Provider Student in an Organized Health Care Education/Training Program; PCP Family Medicine
DX: J39.2 Other diseases of pharynx (principal); R59.0 Localized enlarged lymph nodes; J98.6 Disorders of diaphragm; I10 Essential (primary) hypertension
CPT/HCPCS: 99284; G0297; 70490; J7512

== ENCOUNTER 2020-02-04 04:40 | Outpatient (CLI) | payer BC, SELFPAY ==
[2020-02-04 08:13] LABS: HCT 42.3 % (40.0-50.0); HGB 14.3 g/dL (13.5-17.5); MCH 30.4 pg (27.0-33.0); MCHC 33.8 % (32.0-36.0); MPV 8.6 fL (8.0-11.0); Platelet Count 195 10^3/uL (130-400); RDW 11.5 % (11.8-14.1); WBC 7.17 10^3/uL (4.4-10.8)
[2020-02-04 08:50] LABS: ALT 47 U/L (16-63); AST 22 U/L (15-37); Albumin 3.8 g/dL (3.4-5.0); Alkaline Phosphatase 89 U/L (46-116); BUN 12 mg/dL (7-18); Bilirubin, Total 0.7 mg/dL (0.2-1.0); CREATININE 1.05 mg/dL (0.70-1.30); Calcium 8.8 mg/dL (8.5-10.1); Calculated LDL 58 mg/dL (<100); Chloride 104 mmol/L (98-107); Cholesterol 136 mg/dL (<200); Glucose 92 mg/dL (74-106); HDL Cholesterol 38 mg/dL (40-60); Sodium 140 mmol/L (136-145); Total Protein 6.8 g/dL (6.4-8.2); Triglyceride 204 mg/dL (<150)
== END 2020-02-04 05:00 ==
PROVIDERS: PCP Family Medicine; Visit Provider Family Medicine
DX: E78.5 Hyperlipidemia, unspecified (principal); I10 Essential (primary) hypertension
CPT/HCPCS: 36415; 80053; 80061; 85027

== ENCOUNTER 2020-12-18 13:30 | Emergency (ER) | payer BC, SELFPAY ==
[2020-12-18] VITALS (19 sets, daily range): BP systolic 121–152; BP diastolic 71–99; PULSE 79–92; RESP 13–30; TEMP 36.4; O2SAT 94–99
--- NOTE | 2020-12-18 13:30 | DI.CT_ITS ---
Exam(s) CT ABDOMEN PELVIS W EXAM: CT ABDOMEN PELVIS W CLINICAL HISTORY: Abdominal pain, nausea, cramps. TECHNIQUE: Imaging Protocol: Axial computed tomography images with coronal and sagittal reformatted images were created and reviewed CONTRAST MATERIAL: Intravenous: Omnipaque 350 Contrast volume:100 ml Oral: no COMPARISON: CT CT neck chest wo from 01/19/2019 FINDINGS: There is linear atelectasis at the right lung base. The liver shows fatty infiltration. The gallbla dder, spleen, pancreas, adrenals and kidneys are unremarkable. The bladder and prostate are unremark able. The aorta is normal in diameter and shows mild calcification. The mesenteric vessels appear p atent. There is ascites seen around the liver and spleen. Mild stranding in the mesentery. There is marke d abnormal dilatation of loops of small bowel which show thickened wall. No pneumatosis is seen. No definite transition point. no abscess or perforation. The stomach is distended with fluid. The c olon shows mild diverticulosis but is otherwise normal. Impression: Dilated small bowel loops with wall thickening suspicious for infectious or inflammatory enteritis. No definite transition point. Small amount of ascites.. Findings were called to Dr. Danni Schmidt 3:05 p.m. 19 December 2019 RADIATION DOSE DELIVERED: 1,422.65mGy.cm Total DLP DATA REPOSITORY: All CT scans at this facility are submitted to the National Radiology Data Registry (NRDR) Dose Index Registry (DIR) with the [employer] (ACR). RADIATION OPTIMIZATION: All CT scans at this facility use at least one of these dose optimization te chniques: automated exposure control; mA and/or kV adjustment per patient size (includes targeted exa ms where dose is matched to clinical indication); or iterative reconstruction.
[2020-12-18] MEDS: Ondansetron 4 MG/2 ML VIAL IVP (13:45)
[2020-12-18] MEDS: Ketorolac 15 MG/ML VIAL IVP (13:45)
[2020-12-18] MEDS: Normal Saline Flush 10 ML SYR IVP (13:45)
[2020-12-18] MEDS: Normal Saline 1,000 ML 1000 ML IV (13:45)
--- NOTE | 2020-12-18 13:46 | W.ED.GENAD ---
Discharge Plan Disposition Patient Disposition: HOME Condition: Improving Discharge Details Clinical Impression: Enteritis, Diarrhea, Nausea Primary Care Provider: Barney Santana ED Provider: Danni Schmidt Home Meds and New Rx's Prescriptions: New dicyclomine 20 mg tablet 20 mg PO TID PRN (Reason: abdominal pain) Qty: 10 RF: 0 Continued lisinopril 20 mg tablet 20 mg PO DAILY Qty: 90 RF: 3 atorvastatin [Lipitor] 40 mg tablet 40 mg PO DAILY Qty: 90 RF: 3 amlodipine 5 mg tablet 5 mg PO DAILY Qty: 90 RF: 3 Discharge Instructions Instructions: Acute Nausea and Vomiting (ED), Acute Diarrhea (ED), Enteritis (ED) Additional Instructions: Drink plenty of fluids and get plenty of rest. Your prescription has been sent electronically to your pharmacy. Call the pharmacy to make sure your prescription is ready before pickup. Take the prescription as directed. You can also take ecee-nho-gadkpfj medications such as Maalox, Mylanta or Tylenol as needed for gas or pain. Return the stool sample kit to the hospital as directed once you are able to obtain a stool sample. Call your primary care doctor on Monday morning to schedule a follow-up appointment for reevaluation this week. Return immediately to the emergency department if you develop any worsening or new concerning symptoms such as fever, persistent vomiting, worsening pain or any other concerns. Discharge Data Discharge Physician: Danni Schmidt Medical Decision Making <Carlos Lopes MD - Last Filed: 12/18/20 14:56> 55-year-old male who states after eating takeout hamburger on Monday, he developed diaphoresis, nausea, abdominal cramps, and loose watery stool. This has persisted for now the fourth day. He has felt chilled at home but has not noted a fever. No bloody stools. Patient arrives afebrile, pulse of 90, interactive, with mild diffuse tenderness on his abdominal examination. Differential diagnosis includes dehydration, gastroenteritis, must exclude inflammatory bowel disorder such as ileitis or diverticulitis. Therefore, patient IV access established, given fluid bolus and antiemetic, as well as parenteral analgesia. He is referred for laboratory testing and CT images. Lab Data Lab results reviewed: Yes I reviewed the patient's lab results. Labs: Laboratory Results - last 24 hr 12/18/20 12/18/20 12/18/20 13:40 13:40 13:40 WBC 16.34 H RBC 5.43 Hgb 16.8 Hct 49.2 MCV 90.6 MCH 30.9 MCHC 34.1 RDW 11.3 L Plt Count 274 MPV 8.8 Immature Gran % 0.4 Neutrophils % 83.8 Lymphocytes % 9.5 Monocytes % 5.6 Eosinophils % 0.5 Basophils % 0.2 Nucleated RBC % 0 Absolute Neutrophils 13.69 H Absolute Lymphocytes 1.55 Absolute Monocytes 0.92 H Absolute Eosinophils 0.08 Absolute Basophils 0.03 VBG Lactate 1.1 Sodium 140 Potassium 3.6 Chloride 101 Carbon Dioxide 31.0 Anion Gap 8.0 BUN 12 Creatinine 1.2 Estimated GFR/1.73 m2 >= 60.00 Glucose 107 H Calcium 9.8 Magnesium 2.1 Total Bilirubin 1.0 AST 12 L ALT 24 Alkaline Phosphatase 107 Total Protein 8.5 H Albumin 4.1 <Danni Schmidt DO - Last Filed: 12/18/20 18:09> 1500 --please see Dr. Lopes's note for initial presentation, exam and plan. Case endorsed to follow-up on CT results and final disposition. Patient reassessed and he states his pain is improved but still with some crampy distended feeling. His abdomen is distended and mildly diffusely tender. His vitals are within normal limits and he appears nontoxic. He denies any report of fever or bloody diarrhea. He has been unable to have a bowel movement here. Labs reviewed and note a white blood cell count of 16. Lactate 1.1. CT notes dilated small bowel loops with wall thickening suspicious for infectious or inflammatory enteritis. No definite transition point. Small amount of ascites. 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 1615 -- Surgery on-call reviewed CT images and agree this appears consistent with enteritis and recommends supportive care. Pt feels better and feels good to go home. Discussed that I do not see an indication for antibiotics at this time as he is afebrile, no bloody diarrhea and appears nontoxic. Discussed that could likely be viral and recommend supportive care at this time. We will send with Charles. Patient given stool sample kit to go. Advised to follow up with the primary care doctor for re-evaluation. Usual and customary return precautions given prior to discharge. Medical Records Medical records reviewed: Yes I reviewed the patient's medical records. Imaging Data Radiologic Study: Radiologist's impression: CT ABDOMEN PELVIS W CLINICAL HISTORY: Abdominal pain, nausea, cramps. TECHNIQUE: Imaging Protocol: Axial computed tomography images with coronal and sagittal reformatted images were created and reviewed CONTRAST MATERIAL: Intravenous: Omnipaque 350 Contrast volume:100 ml Oral: no COMPARISON: CT CT neck chest wo from 01/19/2019 FINDINGS: There is linear atelectasis at the right lung base. The liver shows fatty infiltration. The gallbladder, spleen, pancreas, adrenals and kidneys are unremarkable. The bladder and prostate are unremarkable. The aorta is normal in diameter and shows mild calcification. The mesenteric vessels appear patent. There is ascites seen around the liver and spleen. Mild stranding in the mesentery. There is marked abnormal dilatation of loops of small bowel which show thickened wall. No pneumatosis is seen. No definite transition point. no abscess or perforation. The stomach is distended with fluid. The colon shows mild diverticulosis but is otherwise normal. Impression: Dilated small bowel loops with wall thickening suspicious for infectious or inflammatory enteritis. No definite transition point. Small amount of ascites.. Findings were called to Dr. Danni Schmidt 3:05 p.m. 19 December 2019 HPI <Carlos Lopes MD - Last Filed: 12/18/20 14:56> General Mode of arrival: ambulatory. Date/Time Provider Initiated Documentation: 12/18/20 13:31. Limitations to Documentation: no limitations. Information obtained by: patient. History of Present Illness 55 year old M presents to the emergency department with the chief complaint of Abdominal pain, loose stool, cramps since Monday, described as moderate, Quality is described as dull and constant, and is localized to the abdomen. Patient reports no radiation. Patient started experiencing this day(s) and it has been constant. No relieving factors improve symptom(s), No exacerbating factors reported . Patient notes other (Chilled with nausea, did not document fever. Decreased appetite. Loose & watery stool). Patient did receive the following treatments prior to arrival, none Related Data Home Medications Medication Instructions Recorded Confirmed atorvastatin 40 mg tablet 40 mg PO DAILY #90 tab-cap 08/12/20 12/18/20 lisinopril 20 mg tablet 20 mg PO DAILY #90 tab 08/12/20 12/18/20 amlodipine 5 mg tablet 5 mg PO DAILY #90 tab 12/10/20 12/18/20 dicyclomine 20 mg PO TID PRN #10 tab 12/18/20 Previous Rx's Medication Instructions Recorded atorvastatin 40 mg tablet 40 mg PO DAILY #90 tab-cap 08/12/20 lisinopril 20 mg tablet 20 mg PO DAILY #90 tab 08/12/20 amlodipine 5 mg tablet 5 mg PO DAILY #90 tab 12/10/20 dicyclomine 20 mg PO TID PRN #10 tab 12/18/20 Allergies Allergy/AdvReac Type Severity Reaction Status Date / Time No Known Drug Allergies Allergy Unverified 12/18/20 13:37 General Stated Complaint: Abd Prob GOLDIE: 3 Review of Systems <Carlos Lopes MD - Last Filed: 12/18/20 14:56> Narrative: No noted fevers, no other known sick contacts. Immunized against COVID-19. He has been recovering from trigger finger. 8 systems reviewed and otherwise negative. PFSH <Carlos Lopes MD - Last Filed: 12/18/20 14:56> Medical History Bicipital tenosynovitis Bony spur (08/27/14) L elbow Esophageal reflux (05/29/09) Esophageal reflux Family hx colonic polyps sister age 39 Frostbite of face Hiatal hernia (05/29/12) EGD 2012 History of esophageal stricture Hyperlipidemia (12/16/14) Impingement syndrome, shoulder, left Lateral epicondylitis of left elbow (04/14/16) 03/08/16 [facility] Lipoma of skin Neuralgia and neuritis Obstructive sleep apnea C Pap machine Paralysis agitans Paralysis of diaphragm Paresthesia Restrictive lung disease (10/11/17) Dr. Lino, COUNTS INCLUDE 234 BEDS AT THE [facility] Pulmonology Right shoulder pain Rotator cuff syndrome of left shoulder Temporomandibular joint (TMJ) pain Traumatic tear of supraspinatus tendon of left shoulder (12/16/14) Surgical History Rotator Cuff Repair (01/19/15) Dr Alvarenga upper GI endoscopy (12/14/05) Family History Sister Thyroid disease Colon cancer Paternal Grandfather Heart disease Alcohol abuse Depression Paternal Grandmother Diabetes Thyroid disease Breast cancer Mother Essential hypertension Colon polyps Hyperlipidemia Glaucoma Father Essential hypertension Colon polyps Diabetes Maternal Aunt Multiple sclerosis Brother Colon cancer Other Family history of colonic polyps Family history of malignant neoplasm of gastrointestinal tract Social History Smoking/Tobacco Use Status: Never Second Hand Exposure: Yes Smoking risk assessment performed?: Yes Alcohol Intake: former Drug use: Never Substance use type: does not use Caregiver/Support person: No Household members: significant other Housing: house Communication Needs: None Do you need help understanding health information?: Rarely Pets and animals: Yes Pets and animals: cat(s), dog(s) and bird(s) Sexually active: Yes Do you think of yourself as: straight/heterosexual Current gender identity: male What is your relationship status?: living with partner How often do you talk on the phone with friends or family?: three or more times per week How often do you get together with friends or relatives?: once per week How often do you attend zoroastrian or restorationist services?: decline to answer Do you belong to any clubs or organized social groups?: yes Panel score (0-1 are the most socially isolated patients): 3 What type of physical activity do you participate in: bicycling Duration: decline to answer Frequency: 1-2 times per week Christina/Denominational: Jain Special christina needs: No Seatbelt use: always Helmet use: Yes Helmet use: always Drive intox or ride w/intox horse and wagon driver: No Do you feel safe at home: Yes Do you feel safe in your relationship?: Yes Exam <Carlos Lopes MD - Last Filed: 12/18/20 14:56> Narrative Exam Narrative: GEN: awake, alert, oriented 3. Pleasant, well groomed, interactive. HEAD: Normocephalic, atraumatic ENT: Mucous membranes dry, External ear exam unremarkable EYES: PERRL, EOMI NECK: Full ROM, no LEEANN, no menigismus CHEST/RESP: Nontender, clear to auscultation bilateral, no wheeze/rhonchi/rales CARDIOVASCULAR: RRR, no murmur, rub francisco. 2+ Rad pulse bilateral ABDOMEN: Soft, slightly distended, mild diffuse tenderness without rebound or guarding, no mass. +Bowel sounds EXT: Full ROM, no edema, no rash Neuro: Grossly normal neurologic exam, conversant, interactive. Psych: Speech fluent, thoughts congruent, affect normal Course <Carlos Lopes MD - Last Filed: 12/18/20 14:56> Vital Signs Vital signs: Vital Signs Temperature 36.4 C L 12/18/20 13:33 Pulse 90 12/18/20 13:33 Respiratory Rate 16 12/18/20 13:33 Blood Pressure 152/99 H 12/18/20 13:33 Pulse Oximetry 99 12/18/20 13:33 Temperature 36.4 C L 12/18/20 13:33 Temperature Source Skin 12/18/20 13:33 Pulse 90 12/18/20 13:33 Respiratory Rate 16 12/18/20 13:33 Blood Pressure 152/99 H 12/18/20 13:33 Blood Pressure Position Sitting 12/18/20 13:33 Pulse Oximetry 99 12/18/20 13:33 Oxygen Delivery Method Room Air 12/18/20 13:33 Oxygen Flow Rate 0 12/18/20 13:33 Pain Level 8 12/18/20 13:33 Comment 12/18/20 13:33 Sign Out <Carlos Lopes MD - Last Filed: 12/18/20 14:56> Sign Out Data: Sign Out Comment: followup ct images Last updated by Carlos Lopes MD at 12/18/20 14:59
[2020-12-18 13:54] LABS: Abs Immature Grans 0.07 10^3/uL (0.0-0.06); Absolute Eosinophil Count 0.08 10^3/uL (0.0-0.7); Basophils % 0.2; Eosinophils % 0.5; HCT 49.2 % (40.0-50.0); HGB 16.8 g/dL (13.5-17.5); Immature Grans % 0.4; Lymphocytes % 9.5; MCH 30.9 pg (27.0-33.0); MCHC 34.1 % (32.0-36.0); MCV 90.6 fL (80-95); MPV 8.8 fL (8.0-11.0); Monocytes % 5.6; Neutrophils % 83.8; Nucleated RBC 0 %; Platelet Count 274 10^3/uL (130-400); RBC 5.43 10^6/uL (4.36-5.78); RDW 11.3 % (11.8-14.1); RDW-SD 37.3 fL; WBC 16.34 10^3/uL (4.4-10.8)
[2020-12-18 13:56] LABS: Lactate 1.1 mmol/L (0.6-1.4)
[2020-12-18 13:57] LABS: Absolute Basophil Count 0.03 10^3/uL (0.0-0.2); Absolute Lymphocyte Count 1.55 10^3/uL (1.2-3.4); Absolute Monocyte Count 0.92 10^3/uL (0.1-0.8); Absolute Neutrophil Count 13.69 10^3/uL (1.2-6.7)
[2020-12-18 14:11] LABS: ALT 24 U/L (16-63); AST 12 U/L (15-37); Albumin 4.1 g/dL (3.4-5.0); Alkaline Phosphatase 107 U/L (46-116); BUN 12 mg/dL (7-18); CREATININE 1.2 mg/dL (0.70-1.30); Calcium 9.8 mg/dL (8.5-10.1); Chloride 101 mmol/L (98-107); Glucose 107 mg/dL (74-106); Magnesium 2.1 mg/dL (1.8-2.4); Potassium 3.6 mmol/L (3.5-5.1); Sodium 140 mmol/L (136-145); Total Protein 8.5 g/dL (6.4-8.2)
--- NOTE | 2020-12-18 14:18 | NUR.NOTE ---
patient reports nausea and pain decreased. Nursing Note:
[2020-12-18] MEDS: Omnipaque 350 MG/ML 100 ML BTL IJ (14:31)
[2020-12-18 15:03] LABS: Bilirubin Negative (Negative); Blood Negative (Negative); Clarity Clear (Clear); Glucose Negative (Negative); Ketones 40 mg/dL (Negative); Leukocyte Esterase Negative (Negative); Nitrite Negative (Negative); pH 6.5 (5-8)
--- NOTE | 2020-12-18 15:09 | NUR.NOTE ---
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 Nursing Note:
[2020-12-18] MEDS: Dicyclomine 20 MG TAB PO (15:28)
[2020-12-18] MEDS: Dicyclomine 20 MG TAB 60 MG PO (16:42)
[2020-12-18] MEDS: Ondansetron O.D.T. 4 MG TABEF, 3 TABS/BTL PO (16:42)
== END 2020-12-18 16:41 | disposition home or self-care (01) ==
PROVIDERS: Emergency Medicine; Emergency Provider Physician Assistant; PCP Emergency Medicine
DX: K52.89 Other specified noninfective gastroenteritis and colitis (principal); R11.2 Nausea with vomiting, unspecified
CPT/HCPCS: 36415; 80053; 96361; 96374; 96375; 99285; 74177; 81003; 83605; 83735; 85025; 99284; J1885; J2405; J3490

== ENCOUNTER 2020-12-19 13:21 | Outpatient (REF) | payer BC, SELFPAY ==
[2020-12-19 14:40] LABS: C Diff PCR Negative (Negative)
== END 2020-12-19 13:22 | disposition home or self-care (01) ==
LOC: LBN 13:21
PROVIDERS: PCP Emergency Medicine; Visit Provider Emergency Medicine
DX: R19.7 Diarrhea, unspecified (principal); K52.9 Noninfective gastroenteritis and colitis, unspecified
CPT/HCPCS: 87493; 87177

== ENCOUNTER 2021-09-06 02:13 | Outpatient (CLI) | payer BC, SELFPAY ==
[2021-09-06 09:31] LABS: Source Nasal/Nares
[2021-09-06 14:40] LABS: COVID-19 PCR Negative (Negative)
== END 2021-09-06 02:14 | disposition home or self-care (01) ==
LOC: LBO 02:13
PROVIDERS: PCP Nurse Practitioner Family; Visit Provider Surgery
DX: Z20.822 Contact with and (suspected) exposure to COVID-19 (principal); Z01.818 Encounter for other preprocedural examination
CPT/HCPCS: 87635

== ENCOUNTER 2021-09-08 08:13 | Day surgery (SDC) | payer BC, SELFPAY ==
--- NOTE | 2021-09-08 06:34 | W.COLOREPORT ---
Colonoscopy Report Date of procedure: 09/08/21 Pre-op diagnosis general: Colon Cancer Screening and family history Post-op diagnosis procedure note: other (mild diverticulosis, polyps) Procedure: Colonoscopy with polypectomy Surgeon: Roberta Holt Anesthesia Type: General:No Airway Estimated blood loss (mL): 5 Pathology: other (9 polyps) Complications: None Disposition: same day Indications: Mr. Morales is a very pleasant 55-year-old gentleman with a history of polyps and a strong family history of colon cancer in his brother and sister.? His last colonoscopy was in 2014 and he was supposed to come back in 5 years.? He denies any changes in bowel habits, melena, hematochezia or unintentional weight loss.? 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 Both he and his have concerns regarding the procedure and its safety especially with the Covid numbers.? We did discuss that we can postpone the procedure but I am a little nervous with his family history and the fact that he has had polyps in the past.?? My thoughts are that he might be a good candidate for general anesthetic for this to ensure that we can protect his airway throughout the procedure. I have asked him not to take the Lisinopril the morning of the procedure and to bring his BiPap with him Risks, benefits and complications have been reviewed. Complications include but are not limited to bleeding, pain, perforation, missed small lesion/polyp, sore throat, aspiration and adverse reaction to the medications. Questions were entertained and answered to their satisfaction and they wished to proceed. No guarantees were given or implied. Colonoscopy under sedation Prep: Miralax/Dulcolax Procedure Start Time: 10:11 Procedure End Time: 10:39 Retraction Time: 21 minutes Findings: mild sexton-diverticulosis 9 polyps Procedure Description: After informed consent was obtained the patient was taken to the procedure room and placed in a left decubitous position. Monitors were applied and a time out was done. The patients name, date of , procedure, allergies to medications and metal in their body was reviewed. The patient was then sedated. Once sedated and comfortable a rectal exam was done. External exam was normal. Internal exam revealed a normal sphincter tone and no palpable masses. The prostate felt smooth. The scope was then introduced and retro-flexed. No internal hemorrhoids, polyps or masses were identified on retro-flexion. The scope was then advanced to the cecum without difficulty. The ileocecal vlave and appendiceal orifice were identified. The prep was adequate. The scope was then slowly retracted over 21 minutes back into the rectum. Polyps were removed with cold forceps in the ascending colon x1, Transverse colon x1, descending colon x3 and rectum x3 and with a hot snare at the hepatic flexure x1. There was mild sexton- diverticulosis noted. The scope was removed and the patient was woken up and taken back to Same day surgery in stable condition. The patient tolerated the procedure well and there were no immediate complications. Follow up: The patient should follow up in 3-5 years unless they develop changes in bowel habits or other new gastrointestinal complaints.
--- NOTE | 2021-09-08 06:35 | W.PM.DSUDISC ---
Discharge Plan Disposition Patient Disposition: HOME Condition: Good Discharge Details Reason For Visit: Colonoscopy Attending Provider: Roberta Holt Primary Care Provider: Kevin Jean Home Meds and New Rx's Prescriptions: Continued amlodipine 5 mg tablet 5 mg PO DAILY Qty: 90 3RF lisinopril 20 mg tablet 20 mg PO DAILY Qty: 90 3RF atorvastatin 40 mg tablet See Rx Instructions .ROUTE .COMPLEX Qty: 90 3RF Dose Instruction: TAKE 1 TABLET DAILY Rx Instructions: TAKE 1 TABLET DAILY Discontinued polyethylene glycol 3350 17 gram/dose powder 17 g PO ONCE Qty: 238 0RF Rx Instructions: To be taken as directed by prescriber's office for colonoscopy prep. bisacodyl [Dulcolax (bisacodyl)] 5 mg tablet,delayed release (DR/EC) 5 mg PO ONCE Qty: 4 0RF Rx Instructions: Take according to provider's instructions for colonoscopy prep. Discharge Instructions Instructions: Colorectal Polyps (DC), Diverticulosis (DC) Additional Instructions: Findings: mild diverticulosis 9 polyps Follow up: 3-5 years Please call if you develop: fevers >101.5 Nausea or Vomiting Abdominal pain that is not transient Rectal bleeding that is more then a tbsp A hard abdomen and inability to pass gas DAY SURGERY UNIT POST ENDOSCOPY INSTRUCTIONS Instructions for everyone who is given Anesthesia: For your safety, please do the following for the next 24 Hours: a. Do not drive or operate dangerous equipment b. Do not drink alcohol beverages or use any recreational drugs for the first 24 hours or while taking pain medications. The medications in your body may have a reaction that can be dangerous. c. Do not make any important decisions or sign any important papers 1. Generally there are no restrictions on your activity after a day or so has gone by, but you may feel a bit fatigued for a few days. 2. After you arrive home you may have a light meal and return to a normal diet as you can tolerate it without feeling sick to your stomach. 3. After surgery, you may feel pain or discomfort. This should be only transient, but if it persists please contact your doctor. 4. If there are any questions regarding the findings of your procedure, please feel free to contact your doctor. 6. If you are unable to contact your doctor with a problem, contact the hospital at [phone]. 7. Continue all your regular medications unless directed otherwise. I understand the above instructions and have no questions. Signature of Patient or Responsible Adult Escort Date/Time Name of Responsible Adult Escort Signature of Nurse Date/Time Activity:: Activity as Tolerated Diet:: high fiber Discharge Orders Discharge Orders: Discharge Order (Routine); Ordered 09/08/21 Ordered By: Roberta Holt
[2021-09-08 08:25] VITALS: BP 125/83; PULSE 69; RESP 16; TEMP 36.3; O2SAT 99
[2021-09-08] MEDS: Lactated Ringers 1,000 ML 80 ML IV (08:46)
--- NOTE | 2021-09-08 09:01 | W.ANESPRE ---
General Info Date of Service Date Performed: 09/08/21 Height: 5 ft 10 in Weight: 106.4 kg Body Mass Index (BMI): 33.6 Surgical Procedure: Operation Date: 09/08/21 10:20 Proposed Procedure Side Surgeon p Colonoscopy Roberta Holt MD Meds Allergies and Home Medications Allergies Allergy/AdvReac Type Severity Reaction Status Date / Time No Known Drug Allergies Allergy Verified 09/08/21 08:40 Home Medication Medication Instructions Recorded amlodipine 5 mg tablet 5 mg PO DAILY #90 tab 12/10/20 lisinopril 20 mg tablet 20 mg PO DAILY #90 tab 03/08/21 bisacodyl 5 mg tablet,delayed 5 mg PO ONCE #4 tab 05/14/21 release (Dulcolax (bisacodyl)) polyethylene glycol 3350 17 17 g PO ONCE #238 g 05/14/21 gram/dose oral powder atorvastatin 40 mg tablet See Rx Instructions .ROUTE 08/09/21 .COMPLEX #90 tablet Current Visit Medications: Current Medications Generic Name Dose Route Start Last Admin Trade Name John PRN Reason Stop Dose Admin Hyoscyamine Sulfate 0.125 mg 09/08/21 06:36 Hyoscyamine 0.125 Mg Sl/Oral/Chew SL DIRECTED PRN Ringer's Solution 1,000 mls @ 80 mls/hr 09/08/21 06:00 09/08/21 08:46 IV 09/25/21 23:59 80 mls/hr INFUSION KT Administration IV Miscellaneous Supplies 1 each 09/08/21 06:00 Iv Access IV 09/25/21 23:59 DIRECTED KT Ondansetron HCl 4 mg 09/08/21 06:36 Ondansetron 4 Mg/2 Ml Vial IVP Q4H PRN PRN Nausea / Vomiting Sodium Chloride 0 ml 09/08/21 06:00 Normal Saline Flush 10 Ml Syr IV 09/25/21 23:59 PRN PRN Sodium Chloride 0 ml 09/08/21 06:00 Normal Saline 10 Ml Vial IJ 09/25/21 23:59 DIRECTED PRN Sterile Water 0 ml 09/08/21 06:00 Water,Injection,Sterile 10 Ml Vial IJ 09/25/21 23:59 DIRECTED PRN PFSH Active Problems Active Problems: Problem Status Onset Code Paralysis of diaphragm J98.6 Screening for colon cancer Z12.11 Enteritis K52.9 Diarrhea R19.7 Nausea R11.0 HTN (hypertension) I10 Family history of colon cancer Z80.0 Elevated blood pressure reading with diagnosis of hypertension I10 Phrenic nerve palsy G58.8 Globus sensation F45.8 Paralysis agitans G20 Restrictive lung disease 10/11/17 J98.4 Obstructive sleep apnea G47.33 Neuralgia and neuritis M79.2 Family history of colonic polyps Z83.71 Esophageal stricture K22.2 Esophageal reflux K21.9 Family history of malignant neoplasm of gastrointestinal tract Z80.0 Medical History Medical History Bicipital tenosynovitis Bony spur (08/27/14) L elbow Esophageal reflux (05/29/09) Family hx colonic polyps sister age 39 Frostbite of face Hiatal hernia (05/29/12) EGD 2013 History of esophageal stricture Hyperlipidemia (12/16/14) Impingement syndrome, shoulder, left Lateral epicondylitis of left elbow (04/14/16) 03/08/16 [facility] Lipoma of skin Paresthesia Right shoulder pain Rotator cuff syndrome of left shoulder Temporomandibular joint (TMJ) pain Traumatic tear of supraspinatus tendon of left shoulder (12/16/14) Surgical History Surgical History History of colonoscopy (~06/2014) Rotator Cuff Repair (01/19/15) Dr Alvarenga upper GI endoscopy (05/11/05) Tobacco Smoking/Tobacco Use Status: Never Passive smoking exposure: Yes Second hand exposure: Yes Alcohol Alcohol Intake: former Substance Use Substance use: Never Substance use type: does not use Vital Signs and Lab Results Vital Signs Most Recent Vital Signs in EMR: Most Recent Vital Signs Temp Pulse Resp BP Pulse Ox 36.3 C L 69 16 125/83 99 09/08/21 08:25 09/08/21 08:25 09/08/21 08:25 09/08/21 08:25 09/08/21 08:25 Lab Results Blood Type / Crossmatch: No Data to Display Complete Blood Count: No Data to Display Complete Metabolic Panel: No Data to Display Liver Function Panel: No Data to Display Coagulation Panel: No Data to Display Cardiac Panel: No Data to Display Arterial Blood Gas: No Data to Display Venous Blood Gas: No Data to Display Pancreas Panel: No Data to Display Thyroid Panel: No Data to Display Infectious Disease: Coronavirus (COVID-19)(PCR) Negative (Negative) 09/06/21 08:32 09/06/21 Coronavirus 2019 Source Nasal/Nares 09/06/21 08:32 09/06/21 Blood Cultures: No Data to Display Toxicology Panel: No Data to Display Anesthesia Assessment and Plan Anesthesia History Personal History: No History of Anesthesia Complications Family History: No Family History of Anesthesia Complications Exercise Tolerance Exercise Tolerance: Metabolic Equivalents>4 Pertinent Negatives Pertinent Negatives: No Symptoms of GERD, No Major Cardiovascular Symptoms or Complaints and No History of CVA/TIA Cardiac & Pulmonary Exam Cardiac Exam: Normal S1/S2 Heart Sounds Pulmonary Exam: Clear Bilateral Breath Sounds Implantable Cardiac Device Does patient have a Pacemaker or an ICD?: No Airway Exam Known Difficult Airway: No Mallampati Class: 4 Mouth Opening: Normal (> 3cm) Thyromental Distance: Greater than 3 cm Neck Range of Motion: Full ROM Neck Circumference: Normal Teeth Condition: Normal Dentition Tooth Numberin. Chipped per patient ASA Classification ASA Score: ASA 3 Emergency Case?: No NPO Status NPO Status: NPO Clears >2 hours, Solids >8 hours Anesthesia Plan Resuscitation Status: Full Code Anesthesia Technique: General Anesthesia Airway Planned: Natural Airway Monitors Used: Standard Monitors
[2021-09-08 09:19] VITALS: BMI 33.6
--- NOTE | 2021-09-08 10:20 | BOWEL_PTH ---
PATIENT: Zackary Morales LOC: [facility] U#:[id number] AGE/SX: 55/M ROOM: RE09/08/[address]: Roberta Holt MD : [id number] BED: DIS: 09/08/2021 SPEC #: [id number] RECD: 09/08/21 11:35 STATUS: JAZ REQ #: [id number] AIRAM: 09/08/21 10:[address]: Roberta Holt DEPT: Surgical Specimen RECD BY: Hayley Miranda ENTERED: 09/08/21 11:38 SP TYPE: Bowel OTHR DR: Kevin Jean, ROLLER SKATES ASSEMBLER Tissues: 1 - BIOPSY BOWEL 2 - BIOPSY BOWEL 3 - BIOPSY BOWEL 4 - BIOPSY BOWEL 5 - BIOPSY BOWEL Procedures: GROSS AND MICRO LEVEL 4 Comments: [id number]
[2021-09-08 10:47] VITALS: BP 128/88; PULSE 78; RESP 20; TEMP 36.4; O2SAT 91
--- NOTE | 2021-09-08 11:12 | W.ANESPOSTOP ---
Postoperative Evaluation Date, Time and Location Date Performed: 09/08/21 Time Performed: 10:50 Patient Location: Day Surgery Unit Vital Signs Most Recent Imported Vital Signs: Most Recent Vital Signs Temp Pulse Resp BP Pulse Ox 36.4 C L 78 20 128/88 91 L 09/08/21 10:47 09/08/21 10:47 09/08/21 10:47 09/08/21 10:47 09/08/21 10:47 Pain Score Most Recent Pain Score: Most Recent Pain Score Pain Level 0 09/08/21 10:47 Assessment Mental Status: Awake (Alert & Oriented to Patient Baseline) Airway and Respiratory Function: Patent airway with normal (patient baseline) respiratory exam Cardiovascular Function: Hemodynamically Stable Hydration Status: Adequately Hydrated Nausea & Vomiting: No Nausea or Vomiting Pain: Pt. Denies Any Pain Peripheral Nerve Block: Patient did not receive a nerve block
[2021-09-08 11:28] VITALS: BP 128/92; PULSE 67; RESP 16; TEMP 36.4; O2SAT 95
== END 2021-09-08 11:50 | disposition home or self-care (01) ==
LOC: SUR 08:13
PROVIDERS: PCP Nurse Practitioner Family; Visit Provider Surgery
PROC: 0DJD8ZZ Inspection of Lower Intestinal Tract, Via Natural or Artificial Opening Endoscopic (ICD-10-PCS; CPT 45378; principal; 2021-09-08 10:15)
DX: Z12.11 Encounter for screening for malignant neoplasm of colon (principal); K63.5 Polyp of colon; Z80.0 Family history of malignant neoplasm of digestive organs; K57.30 Diverticulosis of large intestine without perforation or abscess without bleeding
CPT/HCPCS: 45385; 45380; 88305; J2001

== ENCOUNTER 2021-11-04 02:52 | Outpatient (CLI) | payer OTHER, SELFPAY ==
[2021-11-04] MEDS: Albuterol HFA 18 GM 200 PUFF INH IH (11:18)
[2021-11-04] MEDS: Inhaler, Assist Device 1 EACH MC (11:19)
--- NOTE | 2021-11-05 07:45 | W.PFT ---
Date of service: 11/04/21 Time of Service: 10:20 Pulmonary Function Test Result Requesting Provider Hue Rees Indications: Disability determination Interpretation Spirometry: There is no airflow limitation. There is a significant bronchodilator effect. The FVC is low. Impression No airflow obstruction. There is a significant bronchodilator effect. The low FVC is like restrictive lung disease based on the appearance of the flow volume curve but cannot rule out pseudo-obstruction from obesity. Recommend full PFT's with lung volumes for further evaluation if this has not already been completed. Note: Compared to PFT completed 08/31/20 at [facility], the FVC and FEV1 have improved. Clinical Correlation therefore is recommended.
== END 2021-11-04 02:53 | disposition home or self-care (01) ==
PROVIDERS: PCP Family Medicine; Visit Provider Pediatrics Pediatric Rheumatology
DX: Z02.71 Encounter for disability determination (principal); R06.89 Other abnormalities of breathing
CPT/HCPCS: 94060; 94618

== ENCOUNTER 2021-11-07 18:43 | Emergency (ER) | payer BC, SELFPAY ==
[2021-11-07 18:47] VITALS: BP 108/82; PULSE 86; RESP 16; TEMP 37; O2SAT 99
--- NOTE | 2021-11-07 19:02 | W.ED.GENAD ---
Discharge Plan Disposition Patient Disposition: HOME Condition: Improving Discharge Details Clinical Impression: Esophagus, foreign body Primary Care Provider: Des Sepulveda ED Provider: Tyree Claudio Home Meds and New Rx's Prescriptions: Continued amlodipine 5 mg tablet 5 mg PO DAILY Qty: 90 3RF lisinopril 20 mg tablet 20 mg PO DAILY Qty: 90 3RF atorvastatin 40 mg tablet See Rx Instructions .ROUTE .COMPLEX Qty: 90 3RF Dose Instruction: TAKE 1 TABLET DAILY Rx Instructions: TAKE 1 TABLET DAILY Discharge Instructions Instructions: Esophageal Foreign Body (ED) Additional Instructions: It would appear as though you were able to pass your esophageal foreign body. Please watch for new or worsening symptoms and return to the ER for any concerns. Otherwise you may follow-up with your ENT specialist to discuss your ongoing esophageal foreign bodies and potential need for intervention if symptoms are to persist. Medical Decision Making This is a 56-year-old gentleman, past medical history that includes a right diaphragm paralysis, esophageal stricture, GERD, presenting to the ER for concern of esophageal foreign body after eating ice cream with strawberries. Patient reports that he is still able to pass some fluid but unable to pass any solid and occasionally when drinking some fluid does come back up as well. He states this has happened in the past but not for a year or 2. He has no other acute concerns or complaints. Clinically he appears well, nontoxic. He is able to speak in full sentences, no respiratory compromise. Plan is to obtain IV access, give IV glucagon, and I will have the patient drink a carbonated beverage and jump up and down. Upon reevaluation patient reports that he believes the strawberry has passed. Tells me that he can swallow without any difficulty. He has developed a small headache and is requesting Tylenol. He was then able to tolerate 650 p.o. Tylenol without any difficulty as well as additional fluids patient states he is not able to drink like this previously. Patient has successfully been p.o. challenge and is requesting discharge. Standard discharge and return precautions were provided. Patient understands, is agreeable to this plan, and has no additional questions or concerns upon discharge. This documentation was generated using [employer] system, please disregard any oddities of phrase or misspellings. Medical Records Medical records reviewed: Yes I reviewed the patient's medical records. HPI General Mode of arrival: ambulatory. Date/Time Provider Initiated Documentation: 11/07/21 18:46. Limitations to Documentation: no limitations. Information obtained by: patient and family. History of Present Illness 56 year old M presents to the emergency department with the chief complaint of throat fb, described as mild, with intensity rated at 2. Quality is described as other (fullness), and is localized to the mouth (throat). Patient reports no radiation. Patient started experiencing this hour(s) (2.5) and it has been constant. No relieving factors improve symptom(s), No exacerbating factors reported . Patient notes nausea/vomiting. Patient did receive the following treatments prior to arrival, none Related Data Home Medications Medication Instructions Recorded Confirmed amlodipine 5 mg tablet 5 mg PO DAILY #90 tabs 12/10/20 11/07/21 lisinopril 20 mg tablet 20 mg PO DAILY #90 tabs 03/08/21 11/07/21 atorvastatin 40 mg tablet See Rx Instructions .Route 08/09/21 11/07/21 .COMPLEX #90 tabs Previous Rx's Medication Instructions Recorded amlodipine 5 mg tablet 5 mg PO DAILY #90 tabs 12/10/20 lisinopril 20 mg tablet 20 mg PO DAILY #90 tabs 03/08/21 atorvastatin 40 mg tablet See Rx Instructions .Route 08/09/21 .COMPLEX #90 tabs Allergies Allergy/AdvReac Type Severity Reaction Status Date / Time No Known Drug Allergies Allergy Verified 11/07/21 18:51 General Stated Complaint: ThroatFB GOLDIE: 3 Review of Systems Constitutional Constitutional: Denies fever(s) ENT Ears, Nose, Mouth, and Throat: Denies sore throat and Denies throat swelling Cardiovascular Cardiovascular: Denies chest pain and Denies dyspnea Respiratory Respiratory: Denies cough and Denies dyspnea Gastrointestinal Gastrointestinal: Denies abdominal pain, Reports nausea and Reports vomiting Allergic/Immunologic Allergic/Immunologic: Denies throat swelling PFSH All Active Problems (Updated 11/07/21 @ 19:45 by MACIE Bullock) Esophagus, foreign body (Acute) Hyperplastic colon polyp (Acute) Tubular adenoma of colon (Acute) Paralysis of diaphragm (Acute) Screening for colon cancer (Acute) Enteritis (Acute) Diarrhea (Acute) Nausea (Acute) HTN (hypertension) (Chronic) Family history of colon cancer (Acute) Elevated blood pressure reading with diagnosis of hypertension (Acute) 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 Lino, [facility] Pulmonology Obstructive sleep apnea (Chronic) C Pap machine Family history of colonic polyps (Chronic) Esophageal reflux (Chronic) Family history of malignant neoplasm of gastrointestinal tract (Chronic) Medical History Bicipital tenosynovitis Bony spur (08/27/14) L elbow Esophageal reflux (05/29/09) Family hx colonic polyps sister age 39 Frostbite of face Hiatal hernia (05/29/12) EGD 2012 History of esophageal stricture Hyperlipidemia (12/16/14) Impingement syndrome, shoulder, left Lateral epicondylitis of left elbow (04/14/16) 03/08/16 [facility] Lipoma of skin Paresthesia Right shoulder pain Rotator cuff syndrome of left shoulder Temporomandibular joint (TMJ) pain Traumatic tear of supraspinatus tendon of left shoulder (12/16/14) Surgical History History of colonoscopy (~06/2014) 08/2021 Rotator Cuff Repair (01/19/15) Dr Alvarenga upper GI endoscopy (05/11/05) Family History Sister Thyroid disease Colon cancer Paternal Grandfather Heart disease Alcohol abuse Depression Paternal Grandmother Diabetes Thyroid disease Breast cancer Mother Essential hypertension Colon polyps Hyperlipidemia Glaucoma Father Essential hypertension Colon polyps Diabetes Maternal Aunt Multiple sclerosis Brother Colon cancer Other Family history of colonic polyps Family history of malignant neoplasm of gastrointestinal tract Social History Smoking/Tobacco Use Status: Never Second Hand Exposure: Yes Smoking risk assessment performed?: Yes Alcohol Intake: former Drug use: Never Substance use type: does not use Caregiver/Support person: No Household members: significant other Housing: house Communication Needs: None Do you need help understanding health information?: Rarely Pets and animals: Yes Pets and animals: cat(s), dog(s) and bird(s) Sexually active: Yes Do you think of yourself as: straight/heterosexual Current gender identity: male What is your relationship status?: living with partner How often do you talk on the phone with friends or family?: three or more times per week How often do you get together with friends or relatives?: once per week How often do you attend mormon or gnosticist services?: decline to answer Do you belong to any clubs or organized social groups?: yes Panel score (0-1 are the most socially isolated patients): 3 What type of physical activity do you participate in: bicycling Duration: decline to answer Frequency: 1-2 times per week Christina/Adventist: Tenriism Special christina needs: No Seatbelt use: always Helmet use: Yes Helmet use: always Drive intox or ride w/intox escort vehicle driver: No Do you feel safe at home: Yes Do you feel safe in your relationship?: Yes Additional Social history: Unable to assess privatley Exam Const General: cooperative, healthy appearing, comfortable and no acute distress Orientation: alert, awake and oriented x3 HENMT Head: normal to inspection, normocephalic and atraumatic Face and sinus: normal facial exam Mouth: oral mucosae normal and moist mucous membranes Throat: posterior oropharynx normal Eyes General: appearance normal, both eyes and all related structures Conjunctivae: conjunctivae normal Neck Neck: normal visual inspection, full ROM, trachea midline, supple and nontender Resp Effort & Inspection: normal respiratory effort and able to speak in complete sentences Auscultation: clear to auscultation bilaterally Cardio Rate: regular rate Rhythm: regular rhythm GI Inspection: normal to inspection Palpation: soft, not firm, no guarding, no pulsatile masses and nontender Auscultation: normal bowel sounds Back/Spine/Pelvis Back: No back tenderness Skin General skin exam: no rashes or lesions noted Neuro General: patient alert, patient awake, moves all extremities and no focal motor deficits Sensory Exam: no sensory deficits noted Psych Appearance: grossly normal Mental Status: mental status grossly normal Course Vital Signs Vital signs: Vital Signs Temperature 37 C 11/07/21 18:47 Pulse 86 11/07/21 18:47 Respiratory Rate 16 11/07/21 18:47 Blood Pressure 108/82 11/07/21 18:47 Pulse Oximetry 99 11/07/21 18:47 Temperature 37 C 11/07/21 18:47 Pulse 86 11/07/21 18:47 Respiratory Rate 16 11/07/21 18:47 Respiratory Effort 11/07/21 18:52 Respiratory Pattern Normal 11/07/21 18:52 Blood Pressure 108/82 11/07/21 18:47 Pulse Oximetry 99 11/07/21 18:47 Oxygen Delivery Method Room Air 11/07/21 18:47 Oxygen Flow Rate 0 11/07/21 18:47 Comment 11/07/21 18:47
[2021-11-07] MEDS: Glucagon 1 MG VIAL 3 MG IVP (19:14)
[2021-11-07] MEDS: Acetaminophen 325 MG TAB (19:31)
[2021-11-07 20:08] VITALS: BP 143/76; PULSE 65; RESP 18; TEMP 37; O2SAT 96
== END 2021-11-07 20:09 | disposition home or self-care (01) ==
PROVIDERS: Emergency Provider Physician Assistant; PCP Family Medicine
DX: F45.8 Other somatoform disorders (principal); J98.6 Disorders of diaphragm
CPT/HCPCS: 96374; 99284; 99283; J1610

== ENCOUNTER 2022-04-07 04:54 | Outpatient (CLI) | payer BC, SELFPAY ==
[2022-04-07 09:33] LABS: Calculated LDL 83 mg/dL (<100); Cholesterol 174 mg/dL (<200); Estimated GFR 89.44 (mL/min/1.73m2); HDL Cholesterol 44 mg/dL (40-60); Triglyceride 237 mg/dL (<150)
[2022-04-07 09:36] LABS: Hemoglobin A1C 5.8 % (<5.7)
[2022-04-07 18:47] LABS: PSA, Screening 1.2 ng/mL (<=3.5)
== END 2022-04-07 04:55 | disposition home or self-care (01) ==
LOC: LBO 04:54
PROVIDERS: PCP Family Medicine; Visit Provider Family Medicine
DX: I10 Essential (primary) hypertension (principal); E78.5 Hyperlipidemia, unspecified; R73.9 Hyperglycemia, unspecified; Z12.5 Encounter for screening for malignant neoplasm of prostate
CPT/HCPCS: 36415; 80061; 84153; 82565; 83036; 84132

== ENCOUNTER 2023-04-05 01:47 | Outpatient (CLI) | payer BC, MEDICARE, SELFPAY ==
[2023-04-05 07:45] LABS: CREATININE 1.1 mg/dL (0.70-1.30); Calculated LDL 70 mg/dL (<100); Cholesterol 175 mg/dL (<200); Estimated GFR 79.28 (mL/min/1.73m2); HDL Cholesterol 46 mg/dL (40-60); Potassium 4.1 mmol/L (3.5-5.1); Triglyceride 297 mg/dL (<150)
[2023-04-05 08:05] LABS: Hemoglobin A1C 5.7 % (<5.7)
== END 2023-04-05 01:48 | disposition home or self-care (01) ==
LOC: LBO 01:47
PROVIDERS: PCP Family Medicine; Visit Provider Family Medicine
DX: I10 Essential (primary) hypertension (principal); E11.51 Type 2 diabetes mellitus with diabetic peripheral angiopathy without gangrene; I70.209 Unspecified atherosclerosis of native arteries of extremities, unspecified extremity; E78.5 Hyperlipidemia, unspecified
CPT/HCPCS: 36415; 80061; 82565; 83036; 84132

== ENCOUNTER 2024-05-09 03:20 | Outpatient (CLI) | payer BC, MEDICARE, SELFPAY ==
[2024-05-09 08:13] LABS: Hemoglobin A1C 5.6 % (<5.7)
[2024-05-09 08:47] LABS: CREATININE 1.1 mg/dL (0.70-1.30); Calculated LDL 96 mg/dL (<100); Cholesterol 172 mg/dL (<200); Estimated GFR 78.79 (mL/min/1.73m2); HDL Cholesterol 52 mg/dL (40-60); Potassium 4.1 mmol/L (3.5-5.1); Triglyceride 123 mg/dL (<150)
== END 2024-05-09 03:21 | disposition home or self-care (01) ==
LOC: LBO 03:20
PROVIDERS: PCP Family Medicine; Visit Provider Family Medicine
DX: I10 Essential (primary) hypertension (principal); E11.51 Type 2 diabetes mellitus with diabetic peripheral angiopathy without gangrene; I70.209 Unspecified atherosclerosis of native arteries of extremities, unspecified extremity; E78.5 Hyperlipidemia, unspecified
CPT/HCPCS: 36415; 80061; 82565; 83036; 84132

== ENCOUNTER 2024-09-11 02:15 | Outpatient (CLI) | payer BC, MEDICARE, SELFPAY ==
[2024-09-11 10:30] LABS: Vitamin B12 325 pg/mL (193-986)
== END 2024-09-11 02:16 | disposition home or self-care (01) ==
PROVIDERS: PCP Family Medicine; Visit Provider Family Medicine
DX: D64.9 Anemia, unspecified (principal)
CPT/HCPCS: 36415; 82607